=== PATIENT | female | born 1945 | race African-American/Black ===

== ENCOUNTER 2022-05-22 14:30 | Inpatient (IN) | payer MEDICARE, MEDICAID ==
[~2022-05-22] VITALS: Ht 165.1 cm; Wt 82.6 kg
[2022-05-22] MEDS ORDERED: albuterol (14:33)
[2022-05-22] MEDS ORDERED: ASPIRIN 81MG TABLET PO ONE (15:00)
[2022-05-22] MEDS ORDERED: DILTIAZEM HCL 5MG/ML 5ML VIAL IV ONE ×2 (15:00→16:00)
[2022-05-22 15:38] LABS: EOSINOPHILS % 8.2 % (0.0-5.0); HEMATOCRIT. 41.2 % (36.0-48.0); HEMOGLOBIN. 13.6 g/dL (12.0-16.0); MEAN CORPUSCULAR HEMOGLOBIN 29.3 pg (28.0-32.0); MEAN PLATELET VOLUME 9.2 fl (7.4-10.4); MONOCYTES % 8.8 % (2.0-8.0); PLATELET 201 x1000/uL (130-400); RED BLOOD CELL COUNT 4.62 mill/uL (4.2-5.4); RED CELL DISTRIBUTION WIDTH 13.6 % (11.6-14.6)
[2022-05-22 15:44] LABS: CHLORIDE 109 mEq/L (98-107)
[2022-05-22] MEDS ORDERED: DILTIAZEM HCL 125 MG in DEXT 5% WATER 100 ML IV PRN ×2 (18:30→20:00)
[2022-05-22] MEDS ORDERED: ENOXAPARIN 80MG/0.8ML SYR SUBCUT NR (18:46)
[2022-05-22] MEDS ORDERED: DOCUSATE SODIUM 100MG CAPSULE PO PRN (19:45)
[2022-05-22] MEDS ORDERED: LORAZEPAM 0.5MG TABLET PO PRN (19:45)
[2022-05-22] MEDS ORDERED: ONDANSETRON HCL 4MG/2ML INJ IV PRN (19:45)
[2022-05-22] MEDS ORDERED: ACETAMINOPHEN 325MG TABLET PO PRN (19:45)
[2022-05-22] MEDS ORDERED: CLONIDINE 0.1MG TABLET PO PRN (19:45)
[2022-05-22] MEDS ORDERED: HYDROCODONE/ACETAMINOPHEN 5/325MG TABLET PO PRN (19:45)
[2022-05-22] MEDS ORDERED: IPRATROPIUM/ALBUTEROL 0.5-3(2.5)MG/3ML NEB HHN PRN (19:45)
[2022-05-22] MEDS ORDERED: NALOXONE HCL 0.4MG/ML VIAL IV PRN (20:00)
[2022-05-23] MEDS ORDERED: SODIUM CHLORIDE 0.9% 250 ML IV ONE (01:15)
[2022-05-23 05:22] LABS: BASOPHILS % 0.9 % (0.0-2.0); EOSINOPHILS % 7.2 % (0.0-5.0); HEMATOCRIT. 40.7 % (36.0-48.0); HEMOGLOBIN. 13.3 g/dL (12.0-16.0); LYMPHOCYTES % 25.9 % (20.0-50.0); MEAN CORPUSCULAR HEMOGLOBIN 29.4 pg (28.0-32.0); MEAN CORPUSCULAR VOLUME 89.9 fL (81.0-99.0); MEAN PLATELET VOLUME 9.8 fl (7.4-10.4); PLATELET 214 x1000/uL (130-400); RED BLOOD CELL COUNT 4.53 mill/uL (4.2-5.4); RED CELL DISTRIBUTION WIDTH 13.7 % (11.6-14.6)
[2022-05-23 05:30] LABS: CHLORIDE 106 mEq/L (98-107)
[2022-05-23 05:31] LABS: PROTHROMBIN TIME 10.8 sec (9.6-11.0)
[2022-05-23] MEDS: ACETAMINOPHEN 325MG TABLET PO PRN ×2 (08:27→18:54)
[2022-05-23] MEDS: ENOXAPARIN 80MG/0.8ML SYR SUBCUT SCH ×2 (09:00→22:03)
[2022-05-23] MEDS: DILTIAZEM HCL 30MG TABLET PO SCH ×2 (10:00→18:29)
[2022-05-23 14:00] VITALS: BP 105/65
[2022-05-23 16:00] VITALS: BP 128/68
[2022-05-23 18:00] VITALS: BP 135/66
[2022-05-23 20:00] VITALS: BP 130/73
[2022-05-23] MEDS ORDERED: IPRATROPIUM BROMIDE (0.02%) 0.5MG/2.5ML NEB HHN PRN (20:00)
[2022-05-23] MEDS ORDERED: ALBUTEROL (0.083%) 2.5MG/3ML NEB HHN PRN (20:00)
[2022-05-23 22:00] VITALS: BP 101/40
[2022-05-24] VITALS (7 sets, daily range): BP systolic 91–120; BP diastolic 44–84
[2022-05-24] MEDS: DILTIAZEM HCL 30MG TABLET PO SCH ×3 (00:47→13:14)
[2022-05-24] MEDS: ENOXAPARIN 80MG/0.8ML SYR SUBCUT SCH (08:52)
[2022-05-24] MEDS ORDERED: DILT120C11 MT (12:50)
[2022-05-24] MEDS ORDERED: APIX5TAB MT (12:50)
[2022-05-24] MEDS ORDERED: ENOXAPARIN 80MG/0.8ML SYR SUBCUT SCH (21:00)
== END 2022-05-24 14:05 | disposition home or self-care (01) | DRG 310 ==
LOC: ER 14:30 → MICUSO 19:05 → EDBEDREQTM 19:06 → EDBEDREQ 19:06 → EDBEDREQSVC 22:16 → ENRESERV 05-23 09:58 → 5EST 05-23 13:41
PROVIDERS: ADMIT Family Medicine Adult Medicine; ATTEND Family Medicine Adult Medicine
DX: I48.91 Unspecified atrial fibrillation (principal); J45.909 Unspecified asthma, uncomplicated; E78.5 Hyperlipidemia, unspecified; F32.A Depression, unspecified; Z79.01 Long term (current) use of anticoagulants
CPT/HCPCS: 36415; 71045; 80048; 80053; 83880; 84439; 84443; 84481; 84484; 85025; 93005; 93306; 99291; J1650; J3490; J7060